=== PATIENT | female | born 1995 | race Caucasian/White ===

== ENCOUNTER 2023-11-16 07:06 | Outpatient (CLI) | payer OTHER ==
[2023-11-16 09:38] LABS: HEMATOCRIT 40.8 % (36.0-45.00); HEMOGLOBIN 13.8 g/dL (12.0-15.00); MEAN CELL VOLUME 89.9 fL (80.00-100.00); MEAN CORPUSCULAR HEMOGLOBIN 30.3 pg (27.00-32.0); MEAN CORPUSCULAR HGB CONC 33.7 g/dl (32.0-36.0); PLATELET COUNT 241 K/uL (150-450); RED BLOOD COUNT 4.54 M/uL (4.00-6.00); RED CELL DISTRIBUTION WIDTH 13.4 % (11.5-14.5)
[2023-11-16 09:53] LABS: PH,URINE 7.5 (5.0-8.0); URINE APPEARANCE Clear; URINE BILIRRUBIN Negative (NEGATIVE); URINE BLOOD Negative; URINE COLOR Yellow; URINE GLUCOSE Negative (NEGATIVE); URINE KETONE Negative (NEGATIVE); URINE LEUKOCYTE Negative; URINE NITRATE Negative; URINE PROTEIN Negative (NEGATIVE); URINE UROBILINOGEN 0.2 E.U./dl
[2023-11-16 09:57] LABS: URINE BACTERIA 60.4 uL (0.0-1933); URINE EPITHELIAL CELLS 3.2 uL (0.0-38.8)
[2023-11-16 10:10] LABS: ALBUMIN 3.8 gm/dL (3.4-5.0); BILIRUBIN TOTAL 0.41 mg/dL (0.3-1.2); CALCIUM 8.5 mg/dL (8.5-10.1); CHOL HDL RATIO 2.6 (0-5.0); CREATININE SERUM 0.69 mg/dL (0.55-1.02); GFR 102.84; GLOBULINA 3.2 G/DL (2.4-3.5); POTASSIUM 4.56 mEq/L (3.5-5.1); TSH 1.97 uIU/mL (0.358-3.74)
[2023-11-16 10:13] LABS: URINE RBC 0.9 uL (0.0-20.8); URINE WBC 0.7 uL (0.0-23.2)
[2023-11-19 11:07] LABS: FOLLICLE STIMULATING HORMONE 2.9 mIU/mL (.)
== END 2023-11-16 07:07 | disposition home or self-care (01) ==
LOC: LAB 07:06
PROVIDERS: ATTEND Obstetrics & Gynecology
DX: D50.9 Iron deficiency anemia, unspecified (principal); E03.9 Hypothyroidism, unspecified; N39.0 Urinary tract infection, site not specified; E78.00 Pure hypercholesterolemia, unspecified; E11.9 Type 2 diabetes mellitus without complications

== ENCOUNTER 2023-11-18 06:11 | Outpatient (CLI) | payer OTHER ==
[2023-11-18 07:24] LABS: HEMATOCRIT 41.8 % (36.0-45.00); HEMOGLOBIN 13.9 g/dL (12.0-15.00); MEAN CELL VOLUME 89.2 fL (80.00-100.00); MEAN CORPUSCULAR HEMOGLOBIN 29.7 pg (27.00-32.0); MEAN CORPUSCULAR HGB CONC 33.3 g/dl (32.0-36.0); PLATELET COUNT 252 K/uL (150-450); RED BLOOD COUNT 4.68 M/uL (4.00-6.00); RED CELL DISTRIBUTION WIDTH 13.1 % (11.5-14.5)
[2023-11-18 07:29] LABS: PH,URINE 5.5 (5.0-8.0); URINE APPEARANCE Clear; URINE BILIRRUBIN Negative (NEGATIVE); URINE BLOOD Negative; URINE COLOR Yellow; URINE GLUCOSE Negative (NEGATIVE); URINE KETONE Negative (NEGATIVE); URINE LEUKOCYTE Negative; URINE NITRATE Negative; URINE PROTEIN Negative (NEGATIVE); URINE UROBILINOGEN 0.2 E.U./dl
[2023-11-18 07:34] LABS: URINE BACTERIA 205.3 uL (0.0-1933); URINE EPITHELIAL CELLS 10.4 uL (0.0-38.8); URINE RBC 3.8 uL (0.0-20.8); URINE WBC 3.2 uL (0.0-23.2)
[2023-11-18 08:07] LABS: INR 1.03; PARTIAL THROMBOPLASTIN TIME 31.8 SECONDS (22.0-34.0); PROTHROMBIN TIME 11.2 SECONDS (9.0-11.5)
[2023-11-18 08:11] LABS: CALCIUM 9.2 mg/dL (8.5-10.1); CREATININE SERUM 0.74 mg/dL (0.55-1.02); GFR 94.86; POTASSIUM 4.75 mEq/L (3.5-5.1)
== END 2023-11-18 11:35 | disposition home or self-care (01) ==
LOC: LAB 06:11 → RAD 06:11 → LAB 11:35
PROVIDERS: ATTEND Physical Medicine & Rehabilitation
DX: E03.9 Hypothyroidism, unspecified (principal); D64.9 Anemia, unspecified; E11.9 Type 2 diabetes mellitus without complications; E78.2 Mixed hyperlipidemia; N39.0 Urinary tract infection, site not specified; I48.0 Paroxysmal atrial fibrillation

== ENCOUNTER 2023-11-21 07:35 | Outpatient (CLI) | payer OTHER | END 2023-11-21 07:42 | disposition home or self-care (01) | LOC: RAD 07:35 | PROVIDERS: ATTEND Physical Medicine & Rehabilitation | DX: Z01.812 Encounter for preprocedural laboratory examination (principal) ==

== ENCOUNTER 2023-12-10 07:01 | Outpatient (CLI) | payer OTHER | END 2023-12-10 07:07 | disposition home or self-care (01) | LOC: RAD 07:01 | PROVIDERS: ATTEND Physical Medicine & Rehabilitation | DX: S92.902B Unspecified fracture of left foot, initial encounter for open fracture (principal) ==

== ENCOUNTER 2024-07-28 06:55 | Outpatient (CLI) | payer OTHER ==
[2024-07-28 07:58] LABS: URINE APPEARANCE Cloudy; URINE BILIRRUBIN Negative (NEGATIVE); URINE BLOOD Negative; URINE COLOR Yellow; URINE GLUCOSE Negative (NEGATIVE); URINE KETONE Negative (NEGATIVE); URINE LEUKOCYTE Negative; URINE NITRATE Negative; URINE PROTEIN Negative (NEGATIVE); URINE UROBILINOGEN 0.2 E.U./dl
[2024-07-28 08:04] LABS: URINE BACTERIA 63.6 uL (0.0-1933); URINE EPITHELIAL CELLS 10.7 uL (0.0-38.8); URINE RBC 2.2 uL (0.0-20.8); URINE WBC 2.2 uL (0.0-23.2)
[2024-07-28 08:31] LABS: ALBUMIN 4.1 gm/dL (3.4-5.0); BILIRUBIN TOTAL 0.72 mg/dL (0.3-1.2); CALCIUM 8.4 mg/dL (8.5-10.1); CHOL HDL RATIO 2.7 (0-5.0); CREATININE SERUM 0.71 mg/dL (0.55-1.02); GFR 98.75; POTASSIUM 3.9 mEq/L (3.5-5.1); T4 FREE 0.93 NG/ML (0.76-1.46); TOTAL PROTEIN 7.1 gm/dL (6.4-8.2); TSH 1.06 uIU/mL (0.358-3.74)
[2024-07-28 09:05] LABS: HEMATOCRIT 40.4 % (34.1-44.9); HEMOGLOBIN 13.3 g/dL (11.2-15.7); MEAN CORPUSCULAR HEMOGLOBIN 29.2 pg (25.6-32.2); PLATELET COUNT 272 K/uL (163-369); RED BLOOD COUNT 4.56 M/uL (3.93-5.22); RED CELL DISTRIBUTION WIDTH 12.9 % (11.6-14.4)
[2024-07-28 09:06] LABS: BASO % 1.7 % (0.1-1.2); EOS # 0.17 (0.04-0.54); EOS % 3.2 % (0.7-7.0); LYMPH # 1.66 (1.18-3.74); LYMPH % 31.3 % (19.3-53.1); MONO # 0.43 (0.24-0.82); MONO % 8.1 % (4.7-12.5); NEUT # 2.94 (1.56-6.13); NEUT % 55.5 % (34.0-71.1)
== END 2024-07-28 07:01 | disposition home or self-care (01) ==
LOC: LAB 06:55
DX: E55.9 Vitamin D deficiency, unspecified (principal); R80.9 Proteinuria, unspecified; E11.9 Type 2 diabetes mellitus without complications; E78.5 Hyperlipidemia, unspecified; E11.65 Type 2 diabetes mellitus with hyperglycemia; E03.9 Hypothyroidism, unspecified; I11.9 Hypertensive heart disease without heart failure; D64.9 Anemia, unspecified

== ENCOUNTER 2024-11-24 09:22 | Outpatient (CLI) | payer OTHER ==
[2024-11-24 10:11] LABS: BASO % 1.3 % (0.1-1.2); EOS # 0.15 (0.04-0.54); EOS % 2.2 % (0.7-7.0); LYMPH # 1.82 (1.18-3.74); LYMPH % 26.7 % (19.3-53.1); MEAN PLATELET VOLUME 8.90 fl (9.4-12.4); MONO # 0.43 (0.24-0.82); MONO % 6.3 % (4.7-12.5); NEUT # 4.32 (1.56-6.13); NEUT % 63.4 % (34.0-71.1); RED CELL DISTRIBUTION WIDTH 13.4 % (11.6-14.4)
[2024-11-24 10:13] LABS: URINE APPEARANCE Clear; URINE BILIRRUBIN Negative (NEGATIVE); URINE BLOOD Negative; URINE COLOR Yellow; URINE GLUCOSE Negative (NEGATIVE); URINE KETONE Negative (NEGATIVE); URINE LEUKOCYTE Negative; URINE NITRATE Negative; URINE PROTEIN Negative (NEGATIVE); URINE UROBILINOGEN 0.2 E.U./dl
[2024-11-24 10:18] LABS: URINE BACTERIA 112.6 uL (0.0-1933); URINE EPITHELIAL CELLS 3.0 uL (0.0-38.8)
[2024-11-24 10:37] LABS: URINE CAST 0.00 uL (0.0-1.40); URINE RBC 0.2 uL (0.0-20.8); URINE WBC 0.4 uL (0.0-23.2)
[2024-11-24 11:07] LABS: ALT/SGPT 16.0 U/L (12-78); AST/SGOT 17.0 U/L (15-37); BILIRUBIN TOTAL 0.66 mg/dL (0.3-1.2); BUN CREA RATIO 10.0 (7.0-25.0); CHOL HDL RATIO 2.6 (0-5.0); CREATININE SERUM 0.68 mg/dL (0.55-1.02); GFR 103.79; GLOBULINA 3.4 G/DL (2.4-3.5); GLUCOSE FASTING 81.0 mg/dL (65-100); HDL 80.0 mg/dl (40-60); LDL 115.0 mg/dl (0-130); OSMOLALITY SERUM 278.0 MOSM/KG (275-295); TSH 1.26 uIU/mL (0.358-3.74); VLDL 11.0 (0-39)
[2024-11-25 05:07] LABS: HSV I IGG TYPE SPECIFIC Reactive (Non Reactive)
== END 2024-11-24 09:23 | disposition home or self-care (01) ==
LOC: LAB 09:22
DX: N91.2 Amenorrhea, unspecified (principal); D50.9 Iron deficiency anemia, unspecified; E03.9 Hypothyroidism, unspecified; E11.9 Type 2 diabetes mellitus without complications; E78.00 Pure hypercholesterolemia, unspecified; N39.0 Urinary tract infection, site not specified; Z11.9 Encounter for screening for infectious and parasitic diseases, unspecified; E55.9 Vitamin D deficiency, unspecified; A63.8 Other specified predominantly sexually transmitted diseases

== ENCOUNTER → 2025-01-04 06:59 | Outpatient (CLI) | payer OTHER ==
[2025-01-04 08:00] LABS: BASO % 1.5 % (0.1-1.2); EOS # 0.19 (0.04-0.54); EOS % 2.8 % (0.7-7.0); LYMPH # 1.98 (1.18-3.74); LYMPH % 28.8 % (19.3-53.1); MEAN PLATELET VOLUME 9.10 fl (9.4-12.4); MONO # 0.49 (0.24-0.82); MONO % 7.1 % (4.7-12.5); NEUT # 4.10 (1.56-6.13); NEUT % 59.5 % (34.0-71.1); RED CELL DISTRIBUTION WIDTH 13.5 % (11.6-14.4)
[2025-01-04 08:07] LABS: COVID-19 AG NEGATIVE (NEGATIVE)
== END | disposition home or self-care (01) ==
LOC: LAB 06:59
DX: A49.3 Mycoplasma infection, unspecified site (principal); U07.1 COVID-19; B34.9 Viral infection, unspecified